=== PATIENT | female | born 1950 | race African-American/Black ===

== ENCOUNTER 2016-09-22 08:01 | Emergency (ER) | payer MEDICARE, BC ==
[~2016-09-22] VITALS: Ht 167.6 cm; Wt 74.0 kg
[~2016-09-22 08:01] MED LIST: ESTROGEN PATCH
[2016-09-22 10:35] VITALS: BP 157/68
== END 2016-09-22 10:39 | disposition home or self-care (01) ==
LOC: ER 08:34
DX: S09.8XXA Other specified injuries of head, initial encounter (principal); F07.81 Postconcussional syndrome; W22.8XXA Striking against or struck by other objects, initial encounter; Y93.89 Activity, other specified; Y92.094 Garage of other non-institutional residence as the place of occurrence of the external cause; Z90.710 Acquired absence of both cervix and uterus
CPT/HCPCS: 70450; 93005; 99284

== ENCOUNTER 2016-09-24 06:55 | Emergency (ER) | payer MEDICARE, BC ==
[~2016-09-24] VITALS: Ht 165.1 cm; Wt 73.0 kg
[2016-09-24 08:36] LABS: CLARITY URINE CLEAR (CLEAR); COLOR URINE YELLOW (YELLOW); GLUCOSE URINE NEGATIVE (NEGATIVE); KETONES URINE NEGATIVE (NEGATIVE); LEUKOCYTE ESTERASE URINE NEGATIVE (NEGATIVE); NITRITE URINE NEGATIVE (NEGATIVE); OCCULT BLOOD URINE NEGATIVE (NEGATIVE); PH URINE 6.5 (4.5-8.0); PROTEIN URINE NEGATIVE (NEGATIVE); SPECIFIC GRAVITY URINE 1.008 (1.005-1.030); UROBILINOGEN URINE 0.2 E.U./dL (0.2-1.0)
[2016-09-24] MEDS ORDERED: IBUPROFEN 600MG TABLET PO ONE (09:00)
[2016-09-24 10:05] VITALS: BP 134/76
== END 2016-09-24 10:07 | disposition home or self-care (01) ==
LOC: ER 07:29
DX: M54.5 Low back pain (principal); X58.XXXA Exposure to other specified factors, initial encounter; Y93.73 Activity, racquet and hand sports; Y92.89 Other specified places as the place of occurrence of the external cause; Y99.8 Other external cause status
CPT/HCPCS: 81003; 99283